=== PATIENT | male | born 1990 | race Caucasian/White ===

== ENCOUNTER 2017-02-26 10:49 | Emergency (ER) | payer OTHER ==
[~2017-02-26 10:49] MED LIST: DEXILANT60 MG PO; NO MEDICATIONS; ZANTAC150 MG PO
[2017-02-26] MEDS ORDERED: NO MEDICATIONS (10:51)
== END 2017-02-26 11:30 | disposition home or self-care (01) ==
LOC: SED 10:49
DX: S61.217A Laceration without foreign body of left little finger without damage to nail, initial encounter (principal); F17.200 Nicotine dependence, unspecified, uncomplicated; W45.8XXA Other foreign body or object entering through skin, initial encounter; Y92.69 Other specified industrial and construction area as the place of occurrence of the external cause; Y99.0 Civilian activity done for income or pay
CPT/HCPCS: 29130; 99283